=== PATIENT | male | born 1980 | race Caucasian/White ===

== ENCOUNTER → 2019-04-21 | Outpatient (CLI) | payer OTHER ==
--- NOTE | 2019-04-21 12:24 | MM ---
Reason for exam: clinical finding. Indicated problem(s): lump or thickening in the right breast. Physical Findings: Nurse Summary: 1cm nodule in the right breast at 12 o'clock (nurse mj and to). [facility] Mammo w CAD CRISTIANO Bilateral CC and MLO view(s) were taken. Minimal bilateral gynecomastia. Palpable BB marker is at a location however in the right upper outer quadrant over the axilla on ultrasound corresponds to a superficial mass. These results were verbally communicated with the patient and result sheet given to the patient on 04/21/19. ASSESSMENT: Suspicious, BI-RAD 4 RECOMMENDATION: Surgical consultation of the right breast. Reviewed recommendation with patient for dermatology/surgical consult. patient verbalized understanding. Patient states they will follow up with [facility] at appointment scheduled in 4 months. The patient is aware that office may contact him sooner to schedule dermatology appointment. Called Yassine Hernandez NP with mammographic findings. PRELIMINARY REPORT CALLED AND FAXED TO YASSINE HERNANDEZ NP ON 04/21/19.
--- NOTE | 2019-04-21 12:28 | USB ---
Reason for exam: clinical finding. US Breast Limited BILAT Right limited breast ultrasound including focal area of concern, retroareolar and axilla demonstrates a 1.1 x 0.9 x 0.6cm mixed lesion at 12 o'clock. Although this likely represents a sebaceous cyst however no clear skin tract or sinus tract seen and excision is recommended. Left limited breast ultrasound including focal area of concern, retroareolar and axilla demonstrates no cystic or solid lesion seen. These results were verbally communicated with the patient and result sheet given to the patient on 04/21/19. ASSESSMENT: Suspicious, BI-RAD 4 RECOMMENDATION: Surgical consultation of the right breast. Manage patient on a clinical basis. Reviewed recommendation with patient for dermatology/surgical consult. patient verbalized understanding. Patient states they will follow up with [facility] at appointment scheduled in 4 months. The patient is aware that office may contact him sooner to schedule dermatology appointment. Called Yassine Hernandez NP with mammographic findings. PRELIMINARY REPORT CALLED AND FAXED TO YASSINE HERNANDEZ NP ON 04/21/19.
== END | disposition home or self-care (01) ==
LOC: RADMAMWWP 08:26
DX: N63.11 Unspecified lump in the right breast, upper outer quadrant (principal)
CPT/HCPCS: 77066

== ENCOUNTER 2023-04-18 08:47 | Day surgery (SDC) | payer OTHER ==
[~2023-04-18 08:47] MED LIST: LACTATED RINGERS 1,000 ML IV SCH
[2023-04-18 09:20] VITALS: TEMP 98.5
[2023-04-18] MEDS ORDERED: PROPOFOL 10 MG/ML 20 ML VIAL IV ONE (10:05)
--- NOTE | 2023-04-18 10:20 | P.PCN ---
Date of Procedure: 04/18/23 Procedure(s) Performed: BRIEF HISTORY: Patient is a 42-year-old pleasant white male scheduled for an elective colonoscopy as a part of screening for colon cancer. PROCEDURE PERFORMED: Colonoscopy. PREOPERATIVE DIAGNOSIS: Screening for colon cancer. IV sedation per Anesthesia. PROCEDURE: After informed consent was obtained, the patient, was brought into the endoscopy unit. IV sedation was administered by Anesthesia under continuous monitoring. Digital rectal examination was normal. Initially the Olympus CF-160 flexible video colonoscope was then inserted in the rectum, gradually advanced into the cecum without any difficulty. Careful examination was performed as the scope was gradually being withdrawn. Ileocecal valve and the appendiceal orifice were visualized and appeared normal. Prep was excellent. Mucosa of the cecum, ascending colon, transverse colon, descending colon, sigmoid colon, and rectum appeared normal. Retroflexion was performed in the rectum and no lesions were seen. The patient tolerated the procedure well. IMPRESSION: Normal-appearing colon from rectum to cecum with no evidence of colorectal neoplasia .. RECOMMENDATIONS: Findings of this examination were discussed with the patient as well as his family. He was advised to have a repeat screening colonoscopy in 10 years.
[2023-04-18 10:52] VITALS: BP 118/79; PULSE 57; RESP 18
== END 2023-04-18 11:06 | disposition home or self-care (01) ==
LOC: ORWHC2ENDO 08:47
PROVIDERS: ATTEND Internal Medicine Gastroenterology
DX: Z12.11 Encounter for screening for malignant neoplasm of colon (principal); I10 Essential (primary) hypertension; F17.200 Nicotine dependence, unspecified, uncomplicated; Z79.899 Other long term (current) drug therapy
CPT/HCPCS: 45378; J2704